=== PATIENT | female | born 1980 | race African-American/Black ===

== ENCOUNTER 2017-04-09 16:15 | Inpatient (IN) | payer OTHER ==
[2017-04-09 20:37] VITALS: BMI 29.7
[2017-04-09] MEDS ORDERED: PROMETHAZINE HCL 25 MG/1 ML VIAL IVPUSH ONE (20:54)
[2017-04-09] MEDS ORDERED: BUTORPHANOL TARTRATE 1 MG/ML VIAL IVPB ONE (20:54)
[2017-04-09] MEDS: ELECTROLYTE-148 SOLN 1,000 ML IV SCH (21:30)
[2017-04-09 22:49] LABS: BASOPHIL 0.2 % (0-2.0); EOSINOPHIL 0.7 % (0-4.5); MCH 27.2 pg (25.7-33.7); MCHC 33.2 g/dl (32.0-36.0); MEAN CELL VOLUME 81.9 fl (80-96); MEAN PLT VOLUME 7.3 fl (7.5-11.1); NEUTROPHILS 69.9 % (42.8-82.8); PLATELET COUNT 392 K/MM3 (134-434); RDW 16.9 % (11.6-15.6)
[2017-04-09 23:08] LABS: INR 0.87 (0.82-1.09); PROTHROMBIN TIME (PATIENT) 9.8 SEC (9.98-11.88)
[2017-04-09 23:16] LABS: ANION GAP 12 (8-16); CALCIUM 8.1 mg/dL (8.5-10.1); CO2 21 mmol/L (21-32); CREATININE 0.6 mg/dL (0.55-1.02); GLUCOSE,RANDOM 67 mg/dL (74-106)
[2017-04-10] MEDS: ELECTROLYTE-148 SOLN 1,000 ML IV SCH ×2 (01:15→06:00)
[2017-04-10] MEDS ORDERED: OXYTOCIN 15 UNITS/ LR 250 ML 250 ML IVPB SCH (01:30)
[2017-04-10] MEDS ORDERED: FENTANYL/BUPIVACAINE/NS/PF - PCEA - 50 ML DISP.SYRIN EP SCH (02:15)
--- NOTE | 2017-04-10 09:08 | HP ---
Past Medical History - Admission Chief Complaint: painful contractions History of Present Illness: 37 y/o P0 presents to L&D with complaints of painful labor pains. no LOF/VB. + FM. uncomplicated other than AMA. History Source: Patient, Medical Record - Past Medical History Cardiovascular: No: HTN Pulmonary: No: Asthma, COPD Gastrointestinal: Yes: GERD. No: Constipation, Irritable Bowel Disease Reproductive: No: Ectopic , Fibroids ...: 1 ...Para: 0 ...Term: 0 ...: 0 ...Spon : 0 ...Induced : 0 ...Multiple Gestation: 0 ...LMP: 07/09/16 ...EDC by Sono: 04/10/17 Infectious Disease: No: AIDS, MRSA, STD's Psych: No: Anxiety, Bipolar, Depression - Past Surgical History Past Surgical History: No: None Hx Myomectomy: No Hx Transabdominal Cerclage: No - Smoking History Smoking history: Never smoked Have you smoked in the past 12 months: No - Alcohol/Substance Use Hx Alcohol Use: No - Social History Usual Living Arrangement: Yes: With Spouse ADL: Independent History of Recent Travel: No Home Medications - Allergies Allergies/Adverse Reactions: Allergies Allergy/AdvReac Type Severity Reaction Status Date / Time sulfamethoxazole Allergy Mild Hives Verified 04/09/17 17:54 [From Bactrim] trimethoprim [From Bactrim] Allergy Mild Hives Verified 04/09/17 17:54 - Home Medications Home Medications: Ambulatory Orders Vitamins (Sjr) - 1 tab PO DAILY 04/05/17 Ranitidine HCl [Zantac] 150 mg PO DAILY PRN 04/09/17 Review of Systems - Review of Systems Constitutional: reports: No Symptoms Eyes: reports: No Symptoms HENT: reports: No Symptoms Neck: reports: No Symptoms Cardiovascular: reports: No Symptoms Respiratory: reports: No Symptoms Gastrointestinal: reports: No Symptoms Genitourinary: reports: No Symptoms Breasts: reports: No Symptoms Reported Musculoskeletal: reports: No Symptoms Integumentary: reports: No Symptoms Neurological: reports: No Symptoms Endocrine: reports: No Symptoms Hematology/Lymphatic: reports: No Symptoms Psychiatric: reports: No Symptoms Physical Exam - Maternity Vital Signs: Vital Signs Temperature 98.4 F 04/10/17 08:00 Pulse Rate 85 04/10/17 07:30 Respiratory Rate 20 04/10/17 07:30 Blood Pressure 126/74 04/10/17 07:30 O2 Sat by Pulse Oximetry (%) 100 04/10/17 07:30 Constitutional: Yes: Well Nourished, Mild Distress Eyes: Yes: Conjunctiva Clear, EOM Intact HENT: Yes: Atraumatic, Normocephalic Neck: Yes: Supple, Trachea Midline Cardiovascular: Yes: Regular Rate and Rhythm Lungs: Clear to auscultation - Abdominal Exam/OB Fundal Height: 40 Number of Fetuses: Single Presentation: Vertex Contractions: Yes Regularity: Irregular Intensity: Moderate Category: I Accelerations: Uniform Decelerations: None - Vaginal Exam/OB Vaginal Bleediing: No Dilatation (cm): 2.5 Effacement (%): 50 Amniotic Membrane Status: Intact Presentation: Vertex/Position Station: -1 - Physical Exam Psychiatric: Yes: Alert, Oriented - Labs Lab Results: CBC, BMP 04/09/17 22:05 04/09/17 22:05 Hemorrhage Risk Assessment - Risk Factors Medium Risk Factors: Yes: None High Risk Factors: Yes: None Risk Score: 1 Risk Level: Medium Risk Problem List - Problems (1) Term Code(s): Z34.80 - ENCOUNTER FOR SUPRVSN OF NORMAL , UNSP TRIMESTER Assessment/Plan 37 y/o P0 with SIUP at 39.6 weeks, early labor - AFVSS - FHTS cat 1 - admit to L&D, allow ambulation ,expectant management for now - GBS negative
--- NOTE | 2017-04-10 09:10 | PN ---
Ante-Partal Exam - Subjective Subjective: Pt s/p epidural, pit at 6. pt overall comfortable but contractions are becoming more painful Vital Signs: Vital Signs Temperature 98.4 F 04/10/17 08:00 Pulse Rate 85 04/10/17 07:30 Respiratory Rate 20 04/10/17 07:30 Blood Pressure 126/74 04/10/17 07:30 O2 Sat by Pulse Oximetry (%) 100 04/10/17 07:30 Bleeding: No Headache: No Visual changes: No Right upper quadrant pain: No - Contractions Contractions: Yes Regularity: Regular Intensity: Mod/Strong - Exam during Labor Heart Rate: 150 Variability: Moderate Category: I Monitor Accelerations: Present Monitor Decelerations: None Exam: Vaginal Dilatation (cm): 4 Effacement (%): 70 Amniotic Membrane Status: Ruptured (AROM for clear fluid) Presentation: Vertex Station: -1 - Assessment/Plan Assessment/Plan: 37 y/o with SIUP at 40 weeks, labor, now augmented - FHTS cat 1 - continue oxytocin per protocol, now s/p AROM - GBS negative - continue current management
[2017-04-10] MEDS: PRENATAL VITAMINS W/ FOLIC ACID TABLET (FP) PO SCH (11:47)
--- NOTE | 2017-04-10 17:49 | PN ---
Ante-Partal Exam - Subjective Subjective: Pt feeling more pain with contractions. Vital Signs: Vital Signs Temperature 98.4 F 04/10/17 16:48 Pulse Rate 97 H 04/10/17 17:15 Respiratory Rate 20 04/10/17 17:15 Blood Pressure 128/82 04/10/17 17:15 O2 Sat by Pulse Oximetry (%) 100 04/10/17 17:15 Bleeding: Yes Bleeding Description: Mild Headache: No Visual changes: No Right upper quadrant pain: No Pain (scale 1-10): 10 - Contractions Contractions: Yes Regularity: Regular Intensity: Mod/Strong Monitor Mode: External - Exam during Labor Heart Rate: 145 Variability: Moderate Category: I Monitor Accelerations: Present Monitor Decelerations: None Exam: Vaginal Dilatation (cm): 7 Effacement (%): 100 Amniotic Membrane Status: Ruptured Amniotic Fluid: Clear (blood tinged) Presentation: Vertex Station: 0 - Assessment/Plan Assessment/Plan: Pitocin turned off earlier 2/2 recurrent late/variable decelerations. Has now been restarted, at 5mu/min. For epidural top off/redose Cervix now 6-7/100/0 continue active management
[2017-04-10] MEDS ORDERED: CITRIC ACID/SODIUM CITRATE 30 ML UNIT-DOSE CUP PO ONE (20:53)
[2017-04-10] MEDS ORDERED: LIDOCAINE HCL 2% (20ML MULTI-DOSE VIAL) NR ONE (23:22)
[2017-04-10] MEDS ORDERED: EPINEPHrine/PF 1 MG/1 ML (1:1,000) AMPULE ONE (23:22)
[2017-04-10] MEDS ORDERED: METHYLERGONOVINE MALEATE 0.2 MG/1 ML AMP IM PRN (23:36)
[2017-04-10] MEDS ORDERED: IBUPROFEN 800 MG/8 ML IJ IVPB PRN (23:36)
[2017-04-10] MEDS ORDERED: oxyCODONE HCL 5 MG TABLET PO PRN ×2 (23:36)
--- NOTE | 2017-04-10 23:46 | PN ---
Ante-Partal Exam - Subjective Subjective: Pt examined by sales applications engineer doctor. NO progress made since earlier this evening. Pitocin turned off 2/2 variable decelerations. Vital Signs: Vital Signs Temperature 98.6 F 04/10/17 22:00 Pulse Rate 111 H 04/10/17 22:30 Respiratory Rate 20 04/10/17 22:30 Blood Pressure 107/52 04/10/17 22:30 O2 Sat by Pulse Oximetry (%) 100 04/10/17 22:30 Bleeding: Yes Bleeding Description: Mild Headache: No Visual changes: No Right upper quadrant pain: No Pain (scale 1-10): 2 - Contractions Contractions: No - Exam during Labor Heart Rate: 150 Variability: Moderate Category: I Monitor Decelerations: None Exam: Vaginal Dilatation (cm): 8 Effacement (%): 100 Presentation: Vertex Station: 0 - Assessment/Plan Assessment/Plan: 37 y/o with SIUP at 40 weeks, arrest of cervical dilation - FHTS cat 1 - arrest of dilation, plan discussed with patient by sales applications engineer doctor. Reaffirmed plan for delivery upon arrival and consents signed. - anesthesia aware
[2017-04-11] MEDS ORDERED: ONDANSETRON 4 MG/2 ML VIAL IVPUSH PRN (00:31)
[2017-04-11] MEDS ORDERED: morphine SULFATE/Preservative Free 0.5 MG/ML (1cc Syringe) SPIN ONE (00:31)
[2017-04-11] MEDS: ELECTROLYTE-148 SOLN 1,000 ML IV SCH ×2 (07:06→23:08)
[2017-04-11 08:53] LABS: BASOPHIL 0.1 % (0-2.0); MCH 26.8 pg (25.7-33.7); MCHC 32.7 g/dl (32.0-36.0); MEAN PLT VOLUME 7.3 fl (7.5-11.1); NEUTROPHILS 85.1 % (42.8-82.8); PLATELET COUNT 377 K/MM3 (134-434); RDW 17.2 % (11.6-15.6); WHITE BLOOD COUNT 13.6 K/mm3 (4.0-10.0)
--- NOTE | 2017-04-11 09:24 | OP ---
Operative Note - Note: Operative Date: 04/11/17 Pre-Operative Diagnosis: arrest if dilation Post-Operative Diagnosis: Same as Pre-op Surgeon: Johana Garcia Dye House Helper: Stephanie Robbins Anesthesiologist/PREPRINT ANALYST: Javier Lobo Anesthesia: Spinal Specimens Removed: placenta Estimated Blood Loss (mls): 600 Operative Report Dictated: Yes
[2017-04-11] MEDS: PRENATAL VITAMINS W/ FOLIC ACID TABLET (FP) PO SCH (11:06)
[2017-04-11] MEDS: OXYTOCIN 20 UNITS in 0.9% NS 1,000 ML IV SCH ×2 (13:30→23:09)
[2017-04-11] MEDS: SIMETHICONE 80 MG TAB.CHEW (FP) PO PRN ×2 (16:04→20:59)
[2017-04-11] MEDS: ACETAMINOPHEN 325 MG TABLET (FP) PO PRN ×2 (16:04→20:59)
--- NOTE | 2017-04-11 17:49 | PN ---
Progress Note (short form) - Note Progress Note: Anesthesia post op note, S/P , POD#1. Pat seen and examined. VSS. No post anesthesia complications.Signed off.
[2017-04-11] MEDS: IBUPROFEN 600 MG TABLET (FP) PO PRN (20:58)
[2017-04-11] MEDS ORDERED: BISACODYL 10 MG SUPP.RECT RC PRN (23:36)
--- NOTE | 2017-04-12 07:22 | PN ---
Post Progress Note - Subjective Subjective: Pt seen/evaluated and doing well. Having some incisional pain but overall is controlled with pain meds. Ambulating, voiding. Tolerating diet. No n/v. Denies CP/SOB/F/C/HAINES. Type of Delivery: Primary C/S Vital Signs: Vital Signs Temperature 98 F 04/11/17 22:00 Pulse Rate 102 H 04/11/17 22:00 Respiratory Rate 20 04/12/17 00:00 Blood Pressure 97/65 04/11/17 22:00 O2 Sat by Pulse Oximetry (%) 100 04/11/17 02:45 Uterus: Yes: Fundus Firm Incision: Yes: Sutures intact Abdomen/GI: Yes: Abdomen soft, Tolerating PO. No: Abdominal Distention, Tender Lochia, amount: Small Extremities: Yes: Calves non-tender, Edema (trace LE edema b/l ) Perineum: Yes: Intact Activity: Ambulating - Labs Labs: CBC WBC 13.6 K/mm3 (4.0-10.0) H D 04/11/17 07:45 RBC 3.88 M/mm3 (3.60-5.2) 04/11/17 07:45 Hgb 10.4 GM/dL (10.7-15.3) L 04/11/17 07:45 Hct 31.8 % (32.4-45.2) L 04/11/17 07:45 MCV 82.0 fl (80-96) 04/11/17 07:45 MCH 26.8 pg (25.7-33.7) 04/11/17 07:45 MCHC 32.7 g/dl (32.0-36.0) 04/11/17 07:45 RDW 17.2 % (11.6-15.6) H 04/11/17 07:45 Plt Count 377 K/MM3 (134-434) 04/11/17 07:45 MPV 7.3 fl (7.5-11.1) L 04/11/17 07:45 Neutrophils % 85.1 % (42.8-82.8) H D 04/11/17 07:45 Lymphocytes % 6.5 % (8-40) L D 04/11/17 07:45 Monocytes % 8.3 % (3.8-10.2) 04/11/17 07:45 Eosinophils % 0.0 % (0-4.5) D 04/11/17 07:45 Basophils % 0.1 % (0-2.0) 04/11/17 07:45 Problem List - Problems (1) Term Code(s): Z34.80 - ENCOUNTER FOR SUPRVSN OF NORMAL , UNSP TRIMESTER (2) delivery delivered Code(s): O82 - ENCOUNTER FOR DELIVERY WITHOUT INDICATION (3) Elderly multigravida delivered Code(s): O09.529 - SUPERVISION OF ELDERLY MULTIGRAVIDA, UNSPECIFIED TRIMESTER Assessment/Plan 37 y/o POD# 1 s/p primary delivery for arrest of descent/dilation - AFVSS - Hgb 10.4 post op, stable, doing well - regular diet, PO pain meds, encourage ambulation - will start Lovenox for VTE PPx - routine care
[2017-04-12] MEDS ORDERED: HYDROmorphone HCL 2 MG TABLET PO PRN (07:54)
[2017-04-12] MEDS ORDERED: BENZOCAINE/MENTH/CETYLPYRD CL 1 EACH LOZENGE MM PRN (07:56)
[2017-04-12] MEDS: ENOXAPARIN NA (PORCINE) 40 MG/0.4 ML DISP.SYRIN SQ SCH (09:52)
[2017-04-12] MEDS: ACETAMINOPHEN 325 MG TABLET (FP) PO PRN (09:52)
[2017-04-12] MEDS: SIMETHICONE 80 MG TAB.CHEW (FP) PO PRN ×2 (09:52→21:32)
[2017-04-12] MEDS: PRENATAL VITAMINS W/ FOLIC ACID TABLET (FP) PO SCH (09:52)
[2017-04-12] MEDS: IBUPROFEN 600 MG TABLET (FP) PO PRN ×2 (09:53→21:31)
[2017-04-12] MEDS: ELECTROLYTE-148 SOLN 1,000 ML IV SCH (22:39)
[2017-04-13 07:36] LABS: BASOPHIL 0.3 % (0-2.0); EOSINOPHIL 0.8 % (0-4.5); MCHC 33.6 g/dl (32.0-36.0); MEAN CELL VOLUME 80.4 fl (80-96); MEAN PLT VOLUME 6.9 fl (7.5-11.1); PLATELET COUNT 354 K/MM3 (134-434); RDW 17.2 % (11.6-15.6); WHITE BLOOD COUNT 9.7 K/mm3 (4.0-10.0)
--- NOTE | 2017-04-13 08:20 | PN ---
Post Progress Note - Subjective Subjective: Pt seen/evaluated. C/O chest congestion this a.m. Denies chest pain. No sputum production or blood in sputum. Non productive cough. States she was up walking 1-2 times yesterday and did not have her chest XRAY yesterday. No dyspnea. No tachycardia. Post Day: 2 Type of Delivery: Primary C/S Vital Signs: Vital Signs Temperature 98.3 F 04/13/17 06:00 Pulse Rate 89 04/13/17 06:00 Respiratory Rate 22 04/13/17 06:00 Blood Pressure 112/73 04/13/17 06:00 O2 Sat by Pulse Oximetry (%) 97 04/12/17 21:00 Breast Exam: Yes: Soft Uterus: Yes: Fundus @ umbilicus Incision: Yes: Sutures intact Abdomen/GI: Yes: Abdomen soft, Tender, Passing flatus, Tolerating PO Lochia: Yes: Rubra Lochia, amount: Small Extremities: Yes: Calves non-tender, Edema (b/l 1+ nonpitting edema, no erythema or pain) Perineum: Yes: Intact Activity: Ambulating - Labs Labs: CBC WBC 9.7 K/mm3 (4.0-10.0) 04/13/17 07:00 RBC 3.57 M/mm3 (3.60-5.2) L 04/13/17 07:00 Hgb 9.7 GM/dL (10.7-15.3) L 04/13/17 07:00 Hct 28.7 % (32.4-45.2) L 04/13/17 07:00 MCV 80.4 fl (80-96) 04/13/17 07:00 MCH 27.0 pg (25.7-33.7) 04/13/17 07:00 MCHC 33.6 g/dl (32.0-36.0) 04/13/17 07:00 RDW 17.2 % (11.6-15.6) H 04/13/17 07:00 Plt Count 354 K/MM3 (134-434) 04/13/17 07:00 MPV 6.9 fl (7.5-11.1) L 04/13/17 07:00 Neutrophils % 79.0 % (42.8-82.8) 04/13/17 07:00 Lymphocytes % 13.0 % (8-40) D 04/13/17 07:00 Monocytes % 6.9 % (3.8-10.2) 04/13/17 07:00 Eosinophils % 0.8 % (0-4.5) D 04/13/17 07:00 Basophils % 0.3 % (0-2.0) 04/13/17 07:00 Other Findings, Remarks: Lungs CTA b/l, no rhonci/wheezes/rales Problem List - Problems (1) Term Code(s): Z34.80 - ENCOUNTER FOR SUPRVSN OF NORMAL , UNSP TRIMESTER (2) delivery delivered Code(s): O82 - ENCOUNTER FOR DELIVERY WITHOUT INDICATION (3) Elderly multigravida delivered Code(s): O09.529 - SUPERVISION OF ELDERLY MULTIGRAVIDA, UNSPECIFIED TRIMESTER (4) Chest congestion Code(s): R09.89 - OTH SYMPTOMS AND SIGNS INVOLVING THE CIRC AND RESP SYSTEMS Assessment/Plan 37 y/o POD# 2 s/p primary delivery for arrest of descent/dilation - AFVSS - Hgb 10.4, stable, doing well, no signs/sx of anemia - regular diet, PO pain meds, encourage ambulation - Lovenox for VTE PPx - chest congestion - CXR ordered/completed, report pending. O2 sat improved to 95% on Room air this a.m.. Encouraged incentive spirometer use, ambulation. Mucinex ordered. Not tachycardic and no chest pain . If continues to have symptoms throughout the day, becomes tachycardic or has CP will do EKG and possible chest CT to r/o PE
[2017-04-13] MEDS: IBUPROFEN 600 MG TABLET (FP) PO PRN ×2 (08:30→21:37)
[2017-04-13] MEDS: SIMETHICONE 80 MG TAB.CHEW (FP) PO PRN (08:31)
[2017-04-13] MEDS ORDERED: FUROSEMIDE 40 MG TABLET (FP) PO ONE (09:15)
[2017-04-13] MEDS: PRENATAL VITAMINS W/ FOLIC ACID TABLET (FP) PO SCH (09:35)
[2017-04-13] MEDS: guaiFENesin 600 MG TABLET.ER (FP) PO SCH ×2 (09:35→21:38)
[2017-04-13] MEDS: ENOXAPARIN NA (PORCINE) 40 MG/0.4 ML DISP.SYRIN SQ SCH (09:35)
[2017-04-13] MEDS ORDERED: guaiFENesin 600 MG TABLET.ER (FP) PO SCH (10:00)
[2017-04-13] MEDS ORDERED: DIPHTH,PERTUSS(ACELL),TET 0.5 ML DISP.SYRIN IM ONE (10:00)
[2017-04-13] MEDS ORDERED: FLU VACC QS2017-18 36MOS UP/PF 60 MCG/0.5 ML SYRINGE IM ONE (10:00)
[2017-04-13] MEDS: DOCUSATE SODIUM 100 MG CAPSULE (FP) PO PRN ×2 (16:17→21:38)
[2017-04-13] MEDS: ACETAMINOPHEN 325 MG TABLET (FP) PO PRN (21:37)
[2017-04-14] MEDS: ENOXAPARIN NA (PORCINE) 40 MG/0.4 ML DISP.SYRIN SQ SCH (09:30)
[2017-04-14] MEDS: PRENATAL VITAMINS W/ FOLIC ACID TABLET (FP) PO SCH (09:30)
--- NOTE | 2017-04-14 09:45 | OP ---
DATE OF OPERATION: 04/11/2017 PREOPERATIVE DIAGNOSIS: Arrest of descent and dilatation, single intrauterine of 40 weeks gestation. POSTOPERATIVE DIAGNOSIS: Arrest of descent and dilatation, single intrauterine of 40 weeks gestation. PROCEDURE: Primary low transverse section. SURGEON: Johana Padgett DO CHEMICAL PROCESSING LABORER: Stephanie Boland MD ESTIMATED BLOOD LOSS: 600 mL. ANESTHESIA: Spinal with Dr. Javier Lobo. COMPLICATIONS: None. SPECIMENS REMOVED: Include placenta ad cord blood. DISPOSITION: Stable to PACU recovery room. BRIEF HISTORY AND PROCEDURE: Patient is a 37-year-old G-1, P-0 female who had been admitted to [facility] on the evening of , April 09, 2017, in early labor. Patient was admitted and augmented with Pitocin and amniotomy. Patient also received an epidural for pain control. On the evening of April 10, 2017, approximately 11:00 p.m., the patient was examined by the on-call doctor and noted to have arrest of cervical dilatation. The heart tones were also noted to have variable decelerations at this time secondary to failure to progress. The patient was counseled on her options, and she elected to undergo a primary section delivery. After consents to the procedure were signed, the patient was then taken back to the operating room. She was given spinal anesthesia by Dr. Lobo and then placed in the dorsal supine position. A Han catheter was placed under sterile conditions. A hard time-out was performed. A Pfannenstiel skin incision was created in the skin with a scalpel and carried to the underlying layer of rectus fascia with the Bovie. The fascia was incised on either side of the midline using sharp dissection with Gardner scissors, and then, the fascia was dissected off the underlying layer of rectus muscles sharply with Gardner scissors. The muscles were retracted, and the peritoneum was entered bluntly. A bladder blade was then inserted. A transverse incision was created in the lower uterine segment, which was extended in a superior lateral direction bluntly. The was then delivered without difficulty, and the cord was clamped twice and cut in between, and the infant was taken over to the warmer to be assessed by the neonatology staff who were present for the entire delivery. The placenta was then delivered manually and intact. The uterus was exteriorized from the abdomen, inspected, and cleared of all amniotic membrane and debris using a dry lap sponge. The hysterotomy was reapproximated with 2 layers of 0 Biosyn suture. The posterior cul-se-sac was suctioned. Bilateral tubes and ovaries were noted to be normal. The uterus was placed back into the abdomen. Bilateral gutters were inspected and cleared of all debris. Again, the hysterotomy was noted to be hemostatic. The peritoneal layer was reapproximated using Biosyn suture in a running fashion. The musculature was reapproximated using Biosyn suture in 2 interrupted sutures. The fascia was reapproximated using 1 Vicryl in a running fashion. The subcutaneous tissue was irrigated and reapproximated using 3-0 Vicryl suture in a running fashion, and the skin reapproximated using subcuticular sutures with 3-0 Vicryl. Steri-Strips were then applied. The patient tolerated the procedure well and was recovering in stable condition in the PACU after the procedure. Sponge, needle and instrument counts were reported to be correct. JOHANA PADGETT DO /[id number] MTDJace
--- NOTE | 2017-04-14 09:58 | DS ---
Physical Exam-DEPARTMENT EDITOR Vital Signs: Vital Signs Temperature 97.8 F 04/13/17 22:00 Pulse Rate 92 H 04/13/17 22:00 Respiratory Rate 20 04/13/17 22:00 Blood Pressure 135/82 04/13/17 22:00 O2 Sat by Pulse Oximetry (%) 95 04/13/17 21:00 Constitutional: Yes: Well Nourished, No Distress, Calm Eyes: Yes: Conjunctiva Clear, EOM Intact HENT: Yes: Atraumatic, Normocephalic Neck: Yes: Supple, Trachea Midline Cardiovascular: Yes: Regular Rate and Rhythm Respiratory: Yes: Regular, CTA Bilaterally Gastrointestinal: Yes: Normal Bowel Sounds, Soft Renal/: No: CVA Tenderness - Left, CVA Tenderness - Right ....Post : Yes: Uterus firm, Uterus non-tender Wound/Incision: Yes: Clean/Dry, Well Approximated Neurological: Yes: Alert, Oriented Psychiatric: Yes: Alert, Oriented Labs: CBC, BMP 04/13/17 07:00 04/09/17 22:05 Delivery - Delivery Section: Primary, Low Flap Transverse Type of Anesthesia: Spinal Episiotomy/Laceration: None EBL (cc): 600 Delivery, Single - Stages of Labor Date 1st Stage Initiatied: 04/10/17 Time 1st Stage Initiated: 09:00 Date 2nd Stage Initiated: 04/10/17 Time 2nd Stage Initiated: 02:00 Date of Delivery: 04/11/17 Time of Delivery: 00:19 Time Placenta Delivered: 00:20 - Condition of Infant Java Developer With Security Clearance/Cold Press Loader Present: Yes Name: Adia Mcnamara Gender: Female Weight: 7 lb 9 oz Total Hours ROM (Hrs/Mins): 15 HOURS/19 MINUTES - 1 Minute Total Score: 9 5 Minutes Total Score: 9 - [place] Feeding Plan Initial Plan: Elected not to breastfeed exclusively throughout hospitalization Discharge Summary Reason For Visit: LABOR Current Active Problems delivery delivered (Acute) Chest congestion (Acute) Elderly multigravida delivered (Acute) Term (Acute) Hospital Course: Patient admitted on evening of 04/09 in early labor. Was given an epidural for pain control and augmented with pitocin. After several hours of pitocin and arrest at 8cm dilated, the patient underwent a primary delivery. On post op day 2 the patient complained of chest congestion, had a cXR showing b/l pleural effusions and was given lasix. On POD#3 the patient was feeling better and repeat CXR was performed which was improved. SHe was then discharged home in stable condition. Condition: Good - Instructions Diet, Activity, Other Instructions: Physical activity Resume your normal everyday activity as tolerated no heavy lifting or exercise until seen by your surgeon. You may walk unlimited amounts and climb stairs. You may resume driving the car when you feel safe and comfortable behind the wheel. No sexual activity as instructed. Wound care If there are tapes on the skin leave them in place. They will peel off in the next 7 to 10 days. Do Not Peel them off. You may shower the day after surgery. If there are tapes present on the skin, you may shower over them. Diet There are no dietary restrictions. Eat healthy, high-fiber foods. Drink 6 to 8 glasses of liquid each day. This will assist in keeping your bowels regular. Pain management You may take Tylenol or or Ibuprofen (for example, Motrin, Advil etc.) for mild pain. If any pain prescription is sent to your pharmacy please take for moderate to severe pain. Call MD for any of the following: Severe pain not relieved by medication Fever of 101 or higher Excessive bleeding or drainage on dressing Inability to urinate Disposition: HOME - Home Medications Comprehensive Discharge Medication List: Ambulatory Orders Vitamins (Sjr) - 1 tab PO DAILY 04/05/17 Ranitidine HCl [Zantac] 150 mg PO DAILY PRN 04/09/17 Ibuprofen [Motrin -] 600 mg PO QID PRN #28 tablet 04/14/17
[2017-04-14] MEDS: guaiFENesin 600 MG TABLET.ER (FP) PO SCH (10:57)
[2017-04-14 14:19] VITALS: BP 120/66; PULSE 72; TEMP 98.9
--- NOTE | 2017-04-15 14:39 | PATH ---
Surgical Pathology Report Patient Name: ZURDO MOORE Med. Rec. #: [id number] /Age/Gender: 1980 (Age: 37) / F Account: [id number] Location: [facility] OBS/INSPECTOR OPEN DIE Taken: 04/11/2017 Received: 04/13/2017 Reported: 04/15/2017 Physicians: Johana Garcia M.D. Specimen(s) Received PLACENTA Clinical History 37-year-old , 40 weeks Abnormal Pap, fibroid uterus Failure to progress (descend) Nonreassuring heart rate Final Diagnosis PLACENTA, SECTION: THIRD TRIMESTER PLACENTA (396 g) WITH TRIVASCULAR UMBILICAL CORD AND UNREMARKABLE PLACENTAL MEMBRANES. Electronically Signed Angela Mclean M.D. Gross Description The specimen is received fresh labeled placenta and is a 396 gram, 16.0 x 14.5 x 2.5 cm. placenta with attached membranes and umbilical cord. The attached membranes are ackerman, translucent with focal opacities and insert marginally. The umbilical cord measures 41 cm. in length and averages 0.9 cm. in diameter. The cord inserts at the margin. No true knots or strictures are identified. Cut surface of the umbilical cord reveals 3 vessels. The surface is martinez-blue with minimal fibrin deposition and appropriate caliber vessels. The maternal surface is red-brown with focal defects. Sectioning reveals a 1.7 cm in greatest dimension hemorrhagic lesion. The remaining placental parenchyma is red-brown and spongy. Director Search Marketing Strategies sections are submitted in 4 cassettes as follows: 1-membrane roll and umbilical cord; 2-lesion; 3-4-full thickness sections of placenta. 04/14/2017 [facility]04/14/2017
== END 2017-04-14 14:35 | disposition home or self-care (01) | DRG 766 ==
LOC: JDEL 16:15 → JLDR 20:10 → J3W 04-11 05:30
PROVIDERS: ADMIT Obstetrics & Gynecology; ATTEND Obstetrics & Gynecology
PROC: 10D00Z1 Extraction of Products of Conception, Low, Open Approach (ICD-10-PCS; principal; 2017-04-11)
DX: O62.0 Primary inadequate contractions (principal); Z3A.40 40 weeks gestation of pregnancy; O26.899 Other specified pregnancy related conditions, unspecified trimester; R09.89 Other specified symptoms and signs involving the circulatory and respiratory systems; O76 Abnormality in fetal heart rate and rhythm complicating labor and delivery; O62.1 Secondary uterine inertia; Z37.0 Single live birth
CPT/HCPCS: 36415; 71010-TC; 71020-TC; 80048; 85025; 85610; 85730; 86593; 86850; 86900; 86901; 88307-TC; 90686; 90715; 94010; G0008